=== PATIENT | female | born 2000 | race Caucasian/White ===

== ENCOUNTER 2021-12-05 10:21 | Emergency (ER) | payer BC ==
[~2021-12-05] VITALS: Ht 157.5 cm; Wt 62.1 kg
[2021-12-05 10:27] VITALS: BP_SYST 122
[2021-12-05] MEDS ORDERED: NAPR-688 PO (11:28)
[2021-12-05] MEDS ORDERED: MAGN296S8 PO (11:28)
[2021-12-05 12:10] VITALS: BP_SYST 134
== END 2021-12-05 12:10 | disposition home or self-care (01) ==
LOC: SED 10:21
DX: K59.00 Constipation, unspecified (principal); Z79.899 Other long term (current) drug therapy
CPT/HCPCS: 74018; 81025; 99283

== ENCOUNTER 2023-01-30 15:42 | Emergency (ER) | payer BC ==
[~2023-01-30] VITALS: Ht 157.5 cm; Wt 59.0 kg
[~2023-01-30 15:42] MED LIST: MAGN296S8 PO; NAPR-688 PO
[2023-01-30 16:04] VITALS: BP_SYST 154; PULSE 78; RESP 16; O2SAT 98
[2023-01-30 18:43] VITALS: BP_SYST 154; PULSE 78; RESP 16; O2SAT 98
[2023-01-31] MEDS ORDERED: AUG875 PO (11:31)
[2023-01-31] MEDS ORDERED: IBUP-1968 PO (11:31)
[2023-01-31] MEDS ORDERED: METH-634 PO (11:31)
== END 2023-01-30 18:43 | disposition left against medical advice (07) ==
LOC: SED 15:42
DX: R51.9 Headache, unspecified (principal); R11.0 Nausea; Z53.21 Procedure and treatment not carried out due to patient leaving prior to being seen by health care provider
CPT/HCPCS: 99281